=== PATIENT | male | born 1975 | race Two or more races ===

== ENCOUNTER 2017-01-02 09:09 | Observation (INO) | payer SELFPAY ==
[2017-01-02 09:43] LABS: BASO % 0.8 % (0-2); BASO ABSOLUTE COUNT 0.1 tho/cmm (0.0-0.2); EOS % 2.3 % (0-7); EOSINOPHIL ABSOLUTE COUNT 0.2 tho/cmm (0.0-0.7); HCT-HEMATOCRIT 45.3 % (36.0-53.5); HGB-HEMOGLOBIN 15.8 gm/dl (13.5-17.0); IMMATURE GRANULOCYTES ABSOLUTE 0.01 tho/cmm (0-0.03); IMMATURE GRANULOCYTES PERCENT 0.2 % (0-0.3); LYMPH % 29.9 % (20-45); LYMPH ABSOLUTE COUNT 1.9 tho/cmm (0.8-4.5); MCHC MEAN CORPUSCULAR HGB CONC 34.9 % (32.0-36.0); MCV (MEAN CELL VOLUME) 83.1 fl (82.0-96.0); MEAN PLATELET VOLUME 10.4 cmc (9.4-12.4); MONO % 7.6 % (0-12); MONOCYTE ABSOLUTE COUNT 0.5 tho/cmm (0.0-1.2); NEUTROPHIL ABSOLUTE COUNT 3.8 tho/cmm (1.6-8.0); NEUTROPHIL-AUTOMATED 3.8 tho/cmm (1.6-8.0); NEUTROPHILS % 59.2 % (40-80); PLATELET COUNT 221 tho/cmm (150-450); RED BLOOD COUNT 5.45 mil/cmm (4.40-5.70); RED CELL DISTRIBUTION WIDTH 12.6 % (12.4-16.4); WHITE BLOOD COUNT 6.5 tho/cmm (4.0-10.0)
[2017-01-02 09:58] LABS: BLOOD UREA NITROGEN 11 mg/dl (6-24); CALCIUM 8.6 mg/dl (8.5-10.5); CARBON DIOXIDE-VENOUS 23 mmol/L (22-32); CHLORIDE 107 mmol/l (96-110); CREATININE 0.63 mg/dl (0.60-1.30); GLUCOSE 166 mg/dL (70-110); SODIUM 139 mmol/L (135-145); eGFR VALUE FOR BLACK >90 mL/Min
[2017-01-02 10:01] LABS: TSH-THYROID STIMULATING HORM. 0.56 uIU/ml (0.40-3.80)
[2017-01-02 10:12] LABS: ANION GAP 13 mmol/L (0-20); POTASSIUM 4.1 mmol/L (3.7-5.1)
[2017-01-02] MEDS ORDERED: ASPIR 8181 M1 PO (10:18)
[2017-01-02] MEDS ORDERED: LOVASTATIN40 M2 PO (10:19)
[2017-01-02] MEDS ORDERED: PRINIVIL5 M1 PO (10:19)
[2017-01-02] MEDS ORDERED: AMARYL2 M1 PO (10:19)
[2017-01-02] MEDS ORDERED: METFORMIN HCL1000 M2 PO (10:20)
[2017-01-03] MEDS ORDERED: PRADAXA150 M1 PO (09:44)
[2017-01-03] MEDS ORDERED: FLECAINIDE ACE100 M1 PO (09:45)
== END 2017-01-03 11:10 ==
LOC: EDMED 09:09 → EMR2 12:20 → PCUB 13:45
PROVIDERS: Emergency Medicine; ADMIT Internal Medicine Interventional Cardiology
DX: I48.91 Unspecified atrial fibrillation (principal); R00.2 Palpitations; F17.210 Nicotine dependence, cigarettes, uncomplicated; I10 Essential (primary) hypertension; E11.9 Type 2 diabetes mellitus without complications; E78.5 Hyperlipidemia, unspecified; Z79.82 Long term (current) use of aspirin; Z79.84 Long term (current) use of oral hypoglycemic drugs; Z79.899 Other long term (current) drug therapy
CPT/HCPCS: A9500; G0378; J1742; J7030